=== PATIENT | female | born 2000 | race Caucasian/White ===

== ENCOUNTER → 2024-01-08 11:51 | Outpatient (REF) | payer OTHER, SELFPAY | LOC: PNTC 11:51 | PROVIDERS: ATTENDING PHYSICIAN Obstetrics & Gynecology | DX: Z34.80 Encounter for supervision of other normal pregnancy, unspecified trimester (principal) | CPT/HCPCS: 76801 ==

== ENCOUNTER 2025-06-06 18:47 | Emergency (ER) | payer OTHER, SELFPAY ==
[2025-06-06 18:51] VITALS: BP 132/75
[2025-06-06] MEDS: TYLENOL 650 MG PO (19:29)
--- NOTE | 2025-06-06 19:58 | ED.MUSCINJ ---
HPI-Injury
General
Chief Complaint: Musculo-Skeletal Complaint
Source: patient
Exam Limitations: none
Time Seen by Provider: 06/06/25 19:35
Nursing documentation reviewed up to this point in time: agreed with
History of Present Illness-Injury
Initial Injury comments:
24-year-old female was at her sister's house coming down the steps and she rolled her left ankle, scraping the outer on the step. Presents with swelling and pain lateral ankle and foot, unable to weight-bear due to pain. She denies any other
injuries.
Past History
Past History
ED Past Medical History: None
ED Past Surgical History: Orthopedic
Social History
Tobacco: Non-smoker
Alcohol: None
Personal: Single
Living: with family
Employment: Employed
Review of Systems
Review of Systems
Allergies reviewed?: Yes
All Other Systems: ROS reviewed and negative except as documented in HPI and ROS
Musculoskeletal Injury Exam
Musculoskeletal Injury Exam
Left Ankle:
Pain with Movement?: Moderate
Tender to palpation?: Moderate
Soft tissue swelling?: Moderate
External deformity and angulation?: None
Strain- Sprain- Tear (Connective tissue injury)?: Moderate
Joint instability?: No
Malalignment/deformity?: No
Range of motion: Limited
Distal skin color and temperature: normal-warm & good color
Capillary Refill: normal
Normal distal neurovascular exam?: Yes
Proximal left fifth metatarsal:
Pain with Movement?: Moderate
Tender to palpation?: Moderate
Soft tissue swelling?: Mild
External deformity and angulation?: None
Joint instability?: No
Malalignment/deformity?: No
Distal skin color and temperature: normal-warm & good color
Capillary Refill: normal
Normal distal neurovascular exam?: Yes
Phy Exam
Physical Exam
Physical Exam:
PHYSICAL EXAMINATION:
General: no apparent distress, not acutely ill
Neuro: alert and oriented.
Psychiatric: well kept. interactive and cooperative
Musculoskeletal: Moves with ease
Skin: Warm, pink. Deep clean abrasion lateral left ankle
Injury Course
Orders/Labs/Results
Orders:
Orders
06/06/25 18:53
Ankle, left 3 view CR [CR Ankle - Left Min 3 Views ] Urgent
Comment:
Reason For Exam: pain
06/06/25 19:28
Acetaminophen [Tylenol] 650 mg .ROUTE .STK-MED ONE
Acetaminophen [Tylenol] 650 mg PO NOW STA
06/06/25 19:57
Michael Wrap Left-Treatment ONCE
Crutches-Treatment ONCE
Ortho Boot Left- Treatment ONCE
Short or tall?: Tall
06/06/25 20:05
Tetanus/Diphth/Acelpertussis [Adacel] 0.5 ml IM .ONCE ONE
MDM/Problems Addressed
MDM/Problems Addressed:
24-year-old female was at her sister's house coming down the steps and she rolled her left ankle, scraping the outer on the step. Presents with swelling and pain lateral ankle and foot, unable to weight-bear due to pain. She denies any other
injuries.
X-ray of left foot reveals transverse fracture through the base of the fifth metatarsal.
Wound cleansed, antibiotic ointment and dressing applied.
Michael wrap and Ortho boot applied. Crutches applied proper use demonstrated
Referred to orthopedics for follow-up
*Pulse Oximetry
SaO2: 100
Oxygen Mode of Delivery: Room air
Patient hypoxic: not evaluated
*Critical Care Note
Total Time (30-74mins, 75-104mins- exclusive of procedures): Not Applicable
ED Attending Note
-
Portions of this chart may have been created with voice recognition software.� Occasional wrong word or��sound alike� substitutions may have occurred due to the inherent limitations of voice recognition software.
Discharge Plan
Departure
Patient Disposition: Home (Routine Discharge)
Date of Disposition: 06/06/25
Time of Disposition: 20:04
Patient with high blood pressure during this ER visit?: No
Discharge Problem:
Fracture of base of fifth metatarsal bone of left foot, Left ankle sprain
Instructions: Using Cold for Pain, Foot Fracture ED, Ankle sprain - ED (DC)
Prescriptions:
No Action
Control
1 tab PO DAILY
phenazopyridine [Pyridium] 200 mg tablet
200 mg PO TID PRN (Reason: pain) Qty: 14 0RF
Referrals:
Roxanne Contreras PA [Family Provider, Family Practice]
Heather Cisneros I., [Active, Orthopedics] - Call in 1-3 days for appt
Activity Restrictions/Additional Instructions:
As we discussed, wear the Ortho boot at all times when up and around till further instructed by the orthopedic doctor.
Tylenol ibuprofen as needed for pain.
Interventions
Interventions:
*Risk Screen - Suicide Last Done: 06/06/25 18:51
*General Assessment Last Done: 06/06/25 20:35
*Neglect/Abuse Screening Last Done: 06/06/25 18:51
*ED COVID-19 Vaccine History Last Done: 06/06/25 20:35
*ED Influenza Vaccine History Last Done: 06/06/25 20:35
[facility] Fall Risk Assessment Tool Last Done: 06/06/25 20:33
*Nursing Disposition Last Done: 06/06/25 20:35
ED-Musculoskeletal Assessment Last Done: 06/06/25 20:33
Discharge Date and Time
Discharge Date/Time: 06/06/25 20:38
Print Language: BENGALI
[2025-06-06] MEDS: ADACEL 0.5 ML IM (20:12)
[2025-06-06 20:33] VITALS: BP 95/80
== END 2025-06-06 20:38 | disposition home or self-care (01) ==
LOC: EMR 18:47
PROVIDERS: EMERGENCY PHYSICIAN Student in an Organized Health Care Education/Training Program; FAMILY PHYSICIAN Physician Assistant Medical
DX: S92.352A Displaced fracture of fifth metatarsal bone, left foot, initial encounter for closed fracture (principal); S90.512A Abrasion, left ankle, initial encounter; X50.1XXA Overexertion from prolonged static or awkward postures, initial encounter; Z23 Encounter for immunization
CPT/HCPCS: 90471; 99283; 73610; 90715